=== PATIENT | male | born 1945 | race Caucasian/White ===

== ENCOUNTER 2020-10-17 06:31 | Observation (INO) ==
[~2020-10-17 06:31] MED LIST: Buffered Lidocaine 1% SYRIN 1 ml INTRADERM ONE; Dexamethasone IV 4 MG/ML VIAL 1 ml VIAL IV SLOW PU ONE; Lactated Ringers 1000 ml BAG 1,000 ML IV SCH
[2020-10-17] MEDS ORDERED: Dexamethasone IV 4 MG/ML VIAL 1 ml VIAL ONE (06:48)
[2020-10-17] MEDS ORDERED: ceFAZolin 2 GM PREMIX 2 GM/50 ML BAG ONE (06:49)
[2020-10-17] MEDS ORDERED: ceFAZolin 1 GM ADVAN 1 GM ADDV.VIAL IVPB ONE (06:49)
[2020-10-17] MEDS ORDERED: Phenylephrine IV 10 MG/ML 1 ml VIAL ONE (06:56)
[2020-10-17] MEDS ORDERED: Lidocaine 2% PF 5 ML VIAL ONE ×2 (07:00→08:57)
[2020-10-17] MEDS ORDERED: Propofol 10 MG/ML 20 ML BTL ONE ×3 (07:05→10:25)
[2020-10-17] MEDS ORDERED: ROPIVACAINE 5 MG/ML 30 ML BTL (0.5%) ONE ×2 (08:12→08:27)
[2020-10-17] MEDS ORDERED: Ketamine HCL 50 mg/ml 10 ml VIAL (500 MG) ONE (08:16)
[2020-10-17] MEDS ORDERED: Midazolam 2 mg/2 ml VIAL 1 mg/ml 2 ml VIAL (2 mg) ONE (08:16)
[2020-10-17] MEDS ORDERED: fentaNYL 100 mcg/2 ml 50 MCG/ML VIAL ONE (08:22)
[2020-10-17] MEDS ORDERED: Lidocaine 1% MPF 5 ML VIAL ONE (08:27)
[2020-10-17] MEDS ORDERED: Ondansetron 4 mg VIAL 2 MG/ML 2 ml VIAL IV PRN ×2 (08:44→11:24)
[2020-10-17] MEDS ORDERED: Naloxone 0.4 mg VIAL 0.4 mg/ml 1 ml VIAL IV PRN (08:44)
[2020-10-17] MEDS ORDERED: fentaNYL 100 mcg/2 ml 50 MCG/ML VIAL IV PRN (08:44)
[2020-10-17] MEDS ORDERED: HYDROmorphone 1 MG/1 ML SYRINGE IV PRN (08:44)
[2020-10-17] MEDS ORDERED: Bupivacaine 0.5% SDV PF 30ML VIAL ONE (08:51)
[2020-10-17] MEDS ORDERED: EPHEDrine (Pressors) 50 MG/ML VIAL ONE ×2 (09:10→09:16)
[2020-10-17] MEDS ORDERED: Ondansetron 4 mg VIAL 2 MG/ML 2 ml VIAL ONE (09:43)
[2020-10-17] MEDS ORDERED: Magnesium Hydroxide LIQ 30 ML UDC PO PRN (11:24)
[2020-10-17] MEDS ORDERED: diPHENhydraMINE 25 mg TAB PO PRN (11:24)
[2020-10-17] MEDS ORDERED: Morphine 2 MG/ML SYRINGE IV PRN (11:24)
[2020-10-17] MEDS ORDERED: Ondansetron ODT 4 mg TAB 4 MG TAB PO PRN (11:24)
[2020-10-17] MEDS ORDERED: Lactulose 30 ml UDC PO PRN (11:24)
[2020-10-17] MEDS ORDERED: diPHENhydraMINE IV 50 MG/ML 1 ml VIAL (BENADRYL) IV PRN (11:24)
[2020-10-17] MEDS: Lactated Ringers 1000 ml BAG 1,000 ML IV SCH (13:00)
[2020-10-17] MEDS: Clindamycin 600 MG/D5W BAG 600 MG/50 ML BAG IV SCH (16:28)
[2020-10-17] MEDS: Magnesium Hydroxide LIQ 30 ML UDC PO SCH (21:04)
[2020-10-18] MEDS: Clindamycin 600 MG/D5W BAG 600 MG/50 ML BAG IV SCH ×2 (00:47→09:20)
[2020-10-18] MEDS: Lactated Ringers 1000 ml BAG 1,000 ML IV SCH (00:53)
[2020-10-18] MEDS ORDERED: Vitamin THERAPEUTIC TAB PO SCH (09:00)
[2020-10-18] MEDS: Magnesium Hydroxide LIQ 30 ML UDC PO SCH (09:19)
[2020-10-18 10:15] LABS: Hematocrit 41 % (42-52); Hemoglobin 13.4 g/dL (14.0-18.0); Mean Platelet Volume 7.5 fL (7.4-10.4); Platelet Count 286 10^3/uL (150-450)
[2020-10-18 10:37] LABS: BUN/Creatinine Ratio 18.8 (8-20); Calcium 8.8 mg/dL (8.6-10.3); EGFR African American 87.4 (>60); EGFR Non-African American 72.2 (>60); Potassium 4.3 mmol/L (3.5-5.0)
[2020-10-18 12:27] VITALS: BP 110/72
== END 2020-10-18 13:30 | disposition home or self-care (01) ==
LOC: OR 06:31 → SSU 06:31
PROVIDERS: ADMIT Orthopaedic Surgery Adult Reconstructive Orthopaedic Surgery; ATTEND Orthopaedic Surgery Adult Reconstructive Orthopaedic Surgery

== ENCOUNTER 2021-02-17 13:00 | Observation (INO) ==
[~2021-02-17 13:00] MED LIST changes: -Dexamethasone IV 4 MG/ML VIAL 1 ml VIAL IV SLOW PU ONE
[2021-02-17] MEDS ORDERED: ceFAZolin 1 GM ADVAN 1 GM ADDV.VIAL IVPB ONE (13:16)
[2021-02-17] MEDS ORDERED: ceFAZolin 2 GM PREMIX 2 GM/50 ML BAG ONE (13:16)
[2021-02-17] MEDS ORDERED: Clindamycin 900 MG/D5W BAG 900 MG/50 ML BAG IVPB ONE (14:01)
[2021-02-17] MEDS ORDERED: Dexamethasone IV 4 MG/ML VIAL 1 ml VIAL ONE (14:44)
[2021-02-17] MEDS ORDERED: Bupivacaine 0.5% SDV PF 30ML VIAL ONE (14:44)
[2021-02-17] MEDS ORDERED: Phenylephrine IV 10 MG/ML 1 ml VIAL ONE (14:59)
[2021-02-17] MEDS ORDERED: Midazolam 2 mg/2 ml VIAL 1 mg/ml 2 ml VIAL (2 mg) ONE (15:19)
[2021-02-17] MEDS ORDERED: Lidocaine 1% MPF 5 ML VIAL ONE (15:42)
[2021-02-17] MEDS ORDERED: Ropivacaine 5 MG/ML 20 ML VIAL 0.5% (100 MG) ONE (15:46)
[2021-02-17] MEDS ORDERED: fentaNYL 100 mcg/2 ml 50 MCG/ML VIAL ONE (16:33)
[2021-02-17] MEDS ORDERED: diPHENhydraMINE IV 50 MG/ML 1 ml VIAL (BENADRYL) IV PRN ×3 (16:58→18:09)
[2021-02-17] MEDS ORDERED: Naloxone 0.4 mg VIAL 0.4 mg/ml 1 ml VIAL IV PRN ×2 (16:58→18:09)
[2021-02-17] MEDS ORDERED: fentaNYL 100 mcg/2 ml 50 MCG/ML VIAL IV PRN ×2 (16:58→18:09)
[2021-02-17] MEDS ORDERED: oxyCODONE/Acetamin 5/325 mg TAB PO PRN (17:06)
[2021-02-17] MEDS ORDERED: Ondansetron 4 mg VIAL 2 MG/ML 2 ml VIAL IV PRN (17:06)
[2021-02-17] MEDS ORDERED: Magnesium Hydroxide LIQ 30 ML UDC PO PRN (17:06)
[2021-02-17] MEDS ORDERED: Morphine 2 MG/ML SYRINGE IV PRN (17:06)
[2021-02-17] MEDS ORDERED: diPHENhydraMINE 25 mg TAB PO PRN (17:06)
[2021-02-17] MEDS ORDERED: Lactulose 30 ml UDC PO PRN (17:06)
[2021-02-17] MEDS ORDERED: Ondansetron ODT 4 mg TAB 4 MG TAB PO PRN (17:06)
[2021-02-17] MEDS ORDERED: Propofol 10 MG/ML 20 ML BTL ONE ×2 (17:40)
[2021-02-17] MEDS ORDERED: Lactated Ringers 1000 ml BAG 1,000 ML IV SCH (18:00)
[2021-02-17] MEDS: Magnesium Hydroxide LIQ 30 ML UDC PO SCH (22:43)
[2021-02-18] MEDS: Clindamycin 900 MG IVPREMIX- Q8H IVPB SCH ×2 (00:16→08:31)
[2021-02-18] MEDS ORDERED: ceFAZolin 1 GM ADVAN 1 GM in NS 0.9% 50 ML 50 ML IVPB SCH (01:00)
[2021-02-18] MEDS: oxyCODONE/Acetamin 5/325 mg TAB PO PRN ×2 (02:20→11:46)
[2021-02-18 06:31] LABS: Hematocrit 44 % (42-52); Hemoglobin 14.3 g/dL (14.0-18.0); Mean Platelet Volume 7.1 fL (7.4-10.4); Platelet Count 332 10^3/uL (150-450)
[2021-02-18 06:52] LABS: Calcium 9.1 mg/dL (8.6-10.3); Potassium 4.2 mmol/L (3.5-5.0)
[2021-02-18 06:58] LABS: BUN/Creatinine Ratio 13.8 (8-20); EGFR African American 94.9 (>60); EGFR Non-African American 78.4 (>60)
[2021-02-18] MEDS: Magnesium Hydroxide LIQ 30 ML UDC PO SCH (08:41)
[2021-02-18] MEDS ORDERED: Vitamin THERAPEUTIC TAB PO SCH (09:00)
[2021-02-18 11:09] VITALS: BP 135/60
== END 2021-02-18 13:30 | disposition home or self-care (01) ==
LOC: SSU 13:00 → OR 13:00 → SSU 23:24
PROVIDERS: ADMIT Orthopaedic Surgery Adult Reconstructive Orthopaedic Surgery; ATTEND Orthopaedic Surgery Adult Reconstructive Orthopaedic Surgery